=== PATIENT | female | born 1980 | race Caucasian/White ===

== ENCOUNTER 2025-05-13 14:37 | Outpatient (RCR) | payer SELFPAY ==
--- NOTE | 2025-05-14 07:51 | HP.OTEVAL_ITS ---
Patient's Visit Information Visit Information Visit Information: SHAJI GATES is a 44 year old F, referred to Occupational Therapy by Dr. Cesar Javier DO, with a diagnosis of Left thumb laceration. Date of Evaluation: 05/13/25 Occupational Therapist: Sabi Roa, VANNAR/Dominguez, CHT Subjective Subjective: This 44 year old female was seen in OT with dx of tendon laceration left thumb. pt states DOI was on 04/25/25 pt states DOS was on 04/28/25. Pt arrives 2 weeks and 2 days s/p a FPL repair of left thumb. pt is in need of custom orthosis only today as she will have her therapy closer to home. Pt [place] hour away from this facility. ROM ROM Comments: pt demo with PROM of left thumb flexion with active ext to protective splint with good ability will formally test AROM when pt is further out from sx. Quick DASH-Disab of Arm,Shoulder& Hand Quick DASH Score: [id number] Goals Goal:Daily scar massage when approriate: Yes Goal:ROM equal to unaffected hand: Yes Goal:Traffic Controller Cable/Pinch strength at least 75% of unaffected hand: Yes Goal:No pain with affected hand use: Yes Goal:Full use of affected hand in daily activities including work: Yes Rehabilitation General Assessment: pt arrives 2 weeks and 2 days s/p from a FPL tendon repair. Pt demo need for protective orthosis to allow for newly healing structures to heal without complications. Today therapist raymond. custom orthosis ed. pt on skin care and precautions and use of orthosis. Pt advised to cont. with passive flexion of IP and MP and CMC with extension to the splint - wrist ROM limiting wrist ext. to splint- Pt will cont with OT services closer to home. Rehabilitation Potential: Good Anticipated Interventions Anticipated Interventions: Early Active Motion, A/AAROM/PROM, Edema Control, Scar Care, Triggerpoint Release, Modalities, Orthoses, Fine Motor Coord/Jam, Education re Diagnosis, Caregiver Training and Home Program Visit Plan TEXT: Thank you for the opportunity to evaluate your patient. For Medicare and Medicare HMO plans, please review the plan of care and approve it. It will need to be FAXED BACK to us at [phone] for Medicare purposes. Please let me know if there are questions or concerns regarding this plan of care. Physician Signature: Date:
--- NOTE | 2025-07-22 08:41 | HP.OT.NRP ---
Patient Information Patient Information: SHAJI GATES was seen in my office for initial evaluation on 05/13/25. The following Plan of Care was established for this patient: Anticipated Interventions Anticipated Interventions: Early Active Motion, A/AAROM/PROM, Edema Control, Scar Care, Triggerpoint Release, Modalities, Orthoses, Fine Motor Coord/Jam, Education re Diagnosis, Caregiver Training and Home Program Last Seen Last Seen: This patient was last seen in our office 05/13/25. Pertinent comments regarding their Occupational therapy will appear below: pt was seen for eval only- no further apts. scheduled. Due to time lapse in services pt is d/c at this time. At this point I will be discontinuing this patient from occupational therapy. I would be happy to see this patient again in the future if found appropriate by the physician. Thank you! Sabi Roa, OTR/L, CHT
== END 2025-05-13 19:00 | disposition home or self-care (01) ==
LOC: OT 14:37
PROVIDERS: Referring Provider Student in an Organized Health Care Education/Training Program; Visit Provider Student in an Organized Health Care Education/Training Program
DX: S66.02 Laceration of long flexor muscle, fascia and tendon of thumb at wrist and hand level (principal)
CPT/HCPCS: 97166